=== PATIENT | female | born 1940 | race Caucasian/White ===

== ENCOUNTER 2018-04-22 15:16 | Emergency (ER) | payer OTHER, MEDICAID ==
--- NOTE | 2018-04-22 15:12 | EDPHY ---
H & P Time Seen by Provider: 04/22/18 15:17 Constitutional: Initial Vital Signs Temperature (C) 36.7 C 04/22/18 15:16 Heart Rate 65 04/22/18 15:16 Respiratory Rate 16 04/22/18 15:16 Blood Pressure 159/69 H 04/22/18 15:16 O2 Sat (%) 97 04/22/18 15:16 O2 Delivery Mode Nasal Cannula O2 (L/minute) 2 Allergies/Adverse Reactions: lisinopril Allergy (Verified 03/16/18 06:57) Home Medications: Medication Instructions Recorded Acetaminophen [Tylenol 325mg (*)] 650 mg PO BID 03/16/18 Acetaminophen [Tylenol 325mg (*)] 650 mg PO Q6HRS PRN 03/16/18 Amiodarone HCl [Pacerone (*)] 200 mg PO DAILY 03/16/18 Atorvastatin Calcium [Lipitor 20 20 mg PO HS 03/16/18 mg (*)] Bisacodyl [Dulcolax] 10 mg RC DAILY PRN 03/16/18 Cholecalciferol Vit D3 [Vitamin D3 5,000 units PO DAILY 03/16/18 (*)] Docusate Sodium [Colace 100 MG (*)] 100 mg PO DAILY 03/16/18 Escitalopram Oxalate [Lexapro 10 10 mg PO DAILY 03/16/18 MG] Herbals/Supplements -Info Only 1 ea PO DAILY 03/16/18 Ipratropium/Albuterol [Duoneb (*)] 3 ml IH Q2H PRN 03/16/18 Levothyroxine [Synthroid 112 mcg 112 mcg PO DAILY06 03/16/18 (*)] Loperamide HCl [Imodium 2 mg (*)] 2 mg PO PRN PRN 03/16/18 Magnesium Oxide [Magnesium Oxide 400 mg PO TID 03/16/18 400 mg (*)] Nystatin 1 galo TP BID PRN 03/16/18 Polyethylene Glycol 3350 [Miralax 17 gm PO DAILY 03/16/18 17 gm (*)] Potassium Cl [Klor-Con 20 meq (*)] 20 meq PO DAILY 03/16/18 Warfarin Sodium [Coumadin 4MG (*)] 4 mg PO DAILY16 03/16/18 guaiFENesin [Mucinex 600 MG (*)] 600 mg PO BID PRN 03/16/18 levETIRAcetam [Keppra 500 mg (*)] 500 mg PO BID 03/16/18 Amoxicillin/Clavulanate Pot 875 mg PO BID #4 tab 03/21/18 [Augmentin 875 MG TAB (*)] predniSONE 40 mg PO DAILY #4 tablet 03/21/18 Medical Decision Making - Diagnostics Imaging: I viewed and interpreted images myself ED Course/Re-evaluation: CHIEF COMPLAINT: Right arm pain HISTORY OF PRESENT ILLNESS: The patient is an anticoagulated (Coumadin) 77 y/o male with a history of 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 The patient began to have right arm pain several days ago, so the nursing staff at [facility] preformed an x-ray. This x-ray revealed a right humeral head fracture with mild displacement. She denies falling, bumping her right arm, or recent trauma. As the patient is bedridden they sent her to the emergency department. No headache, chest pain, shortness of breath, abdominal pain, urinary or bowel complaints, numbness, paresthesias, fevers. REVIEW OF SYSTEMS: A comprehensive 10 system review of systems is otherwise negative aside from elements mentioned in the history of present illness and medical decision making. PHYSICAL EXAM: HR, BP, O2 Sat, RR. Temp noted General Appearance: Obese, bedridden, alert, well hydrated, appropriate, and non -toxic appearing. Head: Atraumatic without scalp tenderness or obvious injury Eyes: Pupils equal, round, reactive to light and accommodation, EOMI, no trauma , no injection. Ears: Clear bilaterally, no perforation, normal landmarks Nose: Atraumatic, no rhinorrhea, clear. Throat: There is no erythema or exudates, no lesions, normal tonsils, mucus membranes moist. Neck: Supple, nontender, no lymphadenopathy. Respiratory: No retractions, no distress, no wheezes, and no accessory muscle use. Lungs are clear to auscultation bilaterally. Cardiovascular: Regular rate and rhythm, no murmurs, rubs, or gallops. Bilateral carotid, radial, dorsalis pedis, and posterior tibial pulses intact. Good capillary refill all extremities. Gastrointestinal: Abdomen is soft, nontender, non-distended, no masses, no rebound, no guarding, no peritoneal signs. Musculoskeletal: Right upper extremity tenderness to palpation with decreased ROM secondary to pain. Neurological: Alert, appropriate, and interactive. The patient has normal DTRs and non-focal cranial nerves, motor, sensory, and cerebellar exam. Skin: No rashes, good turgor, no nodules on palpation. Past medical history: Nontraumatic intracranial hemorrhage with right-sided paresis; embolic stroke; atrial fibrillation - Coumadin; hyperlipidemia; diabetes type 2; hypoxemia; convulsions - Keppra; asthma. Past surgical history: Noncontributory Family history: Denies Social history: Lives at [facility], bedridden, retired DIAGNOSTICS/PROCEDURES/CRITICAL CARE TIME: Right humerus x-ray: Humeral neck fracture with 50% displacement Right shoulder x-ray: Humeral neck fracture with 50% displacement. The humerus is not dislocated. DIFFERENTIAL DIAGNOSIS: The differential diagnosis for the patient's knee injury included but was not limited to fracture, ligamentous injury, contusion, muscular strain. 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 As I don' t have the actual x-ray images I will re-image the patient's right humerus. 1545: I reviewed patient's right arm x-ray which reveals a displaced humeral neck fracture. She does not ambulate, has respiratory difficulties, and is not a good candidate for surgery. I will consult with the orthopedic surgeon semiconductor wafers etch operator regarding this patient. 1551: I consulted with Dr. Solis, orthopedic surgeon, regarding this patient. He will come down to the emergency department to consult on this patient. 1610: I consulted with Dr. Solis as he is in the ED now; right shoulder x-ray ordered. 1620: Patient is safe to be discharged back to [facility]. She has an appointment with Dr. Solis next week. Return precautions provided; patient is comfortable with this plan. Departure - Departure Disposition: Home, Routine, Self-Care Clinical Impression: Right humeral fracture Qualifiers: Encounter type: initial encounter Humerus Location: surgical neck Fracture type : closed Fracture morphology: 2-part Fracture alignment: displaced Qualified Code(s): S42.221A - 2-part displaced fracture of surgical neck of right humerus , initial encounter for closed fracture Condition: Good Instructions: Arm Fracture in Adults (ED) Additional Instructions: 1. Rest, ice, elevation. 2. Follow up with an orthopedic surgeon next week. 3. Return to the emergency department for worsening pain, swelling, numbness, weakness or other concerns. 4. Wear sling at all times until reevaluation. Referrals: Shai Solis MD [Medical Doctor] - As per Instructions Report Scribed for: Glen Hemphill Report Scribed by: Becca Dailey Date of Report: 04/22/18 Time of Report: 15:17
[2018-04-22 15:29] VITALS: BP 159/69
--- NOTE | 2018-04-22 17:19 | ASDISCHSUM ---
Discharge Information Plan Status:SNF Medically Cleared to Leave: Discharge Date: D/C Disposition:Fdc Facility ADT D/C Disposition:Home, Routine, Self-Care Projected Discharge Date: Transportation at D/C:ALS/BLS Discharge Delay Reason: Follow-Up Date: Discharge Slot: Final Diagnosis: Placement Information Patient Contact Information Contact Name:BEATRICE Relationship:Daughter Address:[address] City:[place] Alternate Phone: State/Zip Code:[place] [address] Email: Financial Information Financial Class:Medicare Advantage Plans Primary Plan Desc:[employer] PLANS Primary Plan Number:[id number] Secondary Plan Desc:MED[place] Secondary Plan Number:[id number] Assessment Information [facility] CM Progress Note CM Note CM Note Notes: Pt presented to the ED via EMS from [facility] for a right humeral head fracture. Pt ready for discharge back to . [facility] stretcher arranged; PCS completed, copy provided to EMS, original to be scanned into e-chart. CM available for further assistance if needed. Date Signed: 04/22/2018 05:16 PM Electronically Signed By:Meseret Holcomb RN Intervention Information Intervention Type:Transportation Date of Service:04/22/2018 05:17 PM Patient Type:Emergency Room Staff Member:CATINA Holcomb [place] Hours:0.25 Discipline:Supervisor Hand Silvering Severity: Comment:[facility] stretcher transport arranged. PCS completed. Intervention Type:Post Acute Communication Date of Service:04/22/2018 05:17 PM Patient Type:Emergency Room Staff Member:CATINA Holcomb Sharon Hours:0.25 Discipline:Supervisor Hand Silvering Severity: Comment:Notified [facility] of pt's return to facility and report provided.
--- NOTE | 2018-04-22 18:18 | GCON ---
DATE OF CONSULTATION: 04/22/2018 INDICATIONS: I was asked to see Ms. Jones by the emergency department with a diagnosis of a right hu meral fracture. HISTORY OF PRESENT ILLNESS: This is a very pleasant 77-year-old woman with a medical diagnosis of mo rbid obesity as well as likely dementia. The patient does not note that she fell anytime recently. However, she notes that she had right shoulder pain for the last 2 days. She does have a history of a stroke with right-sided weakness, but is grossly intact. She reports no other musculoskeletal comp laints. PHYSICAL EXAM: EXTREMITIES: Skin overlying the shoulder is clean, dry, and intact. Range of motion is deferred secondary to pain. The patient is grossly intact throughout the hand, wrist, and elbow. According to the family again, as mentioned above, she has some deficits from prior injury, but all strength at this time is a least 3/5 except for the shoulder range of motion, which is deferred. IMAGES: Taken include 2 views of the right shoulder, which demonstrate a surgical neck fracture. I requested an axillary view and positioned the patient in the axillary position. An x-ray was taken a nd demonstrated a humeral neck fracture with no evidence of glenohumeral dislocation. IMPRESSION: Right proximal humerus fracture. ASSESSMENT AND PLAN: Given the fracture pattern, this is going to heal well non-operatively. Additi onally, given the patient's comorbidities, mental status, and demands, this is almost certainly not g oing to be an operative fracture almost regardless of displacement. I recommended that the patient be treated with a sling. We will immobilize her for a week simply for her comfort. I will see her next Monday in my clinic, will repeat x-rays at which time we will star t passive range of motion with Codman pendulums. The patient's family was given my card and my offic e will be in touch with them for further information. /[id number]/MODL
== END 2018-04-22 17:34 | disposition home or self-care (01) ==
LOC: EDUNIT#
DX: M84.821 Other disorders of continuity of bone, right humerus (principal); Z74.01 Bed confinement status; I69.351 Hemiplegia and hemiparesis following cerebral infarction affecting right dominant side; I48.91 Unspecified atrial fibrillation; E11.9 Type 2 diabetes mellitus without complications; E78.5 Hyperlipidemia, unspecified; G40.909 Epilepsy, unspecified, not intractable, without status epilepticus
CPT/HCPCS: 73030; 73060; 99283; A4565

== ENCOUNTER 2018-12-26 08:11 | Emergency (ER) | payer OTHER, MEDICAID ==
--- NOTE | 2018-12-26 08:23 | EDPHY ---
H & P Time Seen by Provider: 12/26/18 08:19 HPI/ROS: Chief complaint. Fell out of bed HPI. Patient is a 78-year-old female here by EMS. She will old over in bed this morning and fell out of bed. Unknown loss of consciousness. She did sustain a bump to the left forehead. She has neck pain. C-spine precautions are perform per EMS. She also complains of right shoulder pain. Patient had a right humeral neck fracture in April 2018. Patient is on Coumadin. No chest pain or shortness of breath. No abdominal pain. Denies back pain. No injury otherwise to arms or hips or legs other than the right shoulder pain. ROS 10 systems were reviewed and negative with the exception of the elements mentioned in the history of present illness Past Medical/Surgical History: Diabetes, CVA with residual right-sided weakness, hypertension, hypothyroid, atrial fibrillation, sleep apnea Social History: Single, nonsmoker, no alcohol Smoking Status: Never smoked Physical Exam: General Appearance: Alert well-developed female mild distress. Vital signs are stable Eyes: Pupils equal and round no pallor or injection. ENT, no hemotympanum or Mcgowan sign. No oral pharyngeal or dental trauma. Small hematoma left forehead Respiratory: There are no retractions, lungs are clear to auscultation. Cardiovascular: Regular rate and rhythm. Gastrointestinal: Abdomen is soft and nontender, no masses, bowel sounds normal. Neurological: Awake and alert. Residual right-sided weakness from CVA. No new findings. Skin: Warm and dry, no rashes. Musculoskeletal: Neck is restrained in cervical collar. Palpation reveals diffuse tenderness. No T, L, S spine tenderness. Extremities tenderness to palpation right anterior shoulder Psychiatric: Patient is oriented X 3, there is no agitation. Constitutional: Initial Vital Signs Temperature (C) 36.3 C 12/26/18 08:11 Heart Rate 51 L 12/26/18 08:11 Respiratory Rate 18 12/26/18 08:11 Blood Pressure 133/46 H 12/26/18 08:11 O2 Sat (%) 90 L 12/26/18 08:11 O2 Delivery Mode Room Air O2 (L/minute) 3 Allergies/Adverse Reactions: lisinopril Allergy (Verified 12/26/18 08:19) Home Medications: Medication Instructions Recorded Acetaminophen [Tylenol 325mg (*)] 650 mg PO BID 03/16/18 Acetaminophen [Tylenol 325mg (*)] 650 mg PO Q6HRS PRN 03/16/18 Amiodarone HCl [Pacerone (*)] 200 mg PO DAILY 03/16/18 Atorvastatin Calcium [Lipitor 20 20 mg PO HS 03/16/18 mg (*)] Bisacodyl [Dulcolax] 10 mg RC DAILY PRN 03/16/18 Cholecalciferol Vit D3 [Vitamin D3 5,000 units PO DAILY 03/16/18 (*)] Docusate Sodium [Colace 100 MG (*)] 100 mg PO DAILY 03/16/18 Escitalopram Oxalate [Lexapro 10 10 mg PO DAILY 03/16/18 MG] Herbals/Supplements -Info Only 1 ea PO DAILY 03/16/18 Ipratropium/Albuterol [Duoneb (*)] 3 ml IH Q2H PRN 03/16/18 Levothyroxine [Synthroid 112 mcg 112 mcg PO DAILY06 03/16/18 (*)] Loperamide HCl [Imodium 2 mg (*)] 2 mg PO PRN PRN 03/16/18 Magnesium Oxide [Magnesium Oxide 400 mg PO TID 03/16/18 400 mg (*)] Nystatin 1 galo TP BID PRN 03/16/18 Polyethylene Glycol 3350 [Miralax 17 gm PO DAILY 03/16/18 17 gm (*)] Potassium Cl [Klor-Con 20 meq (*)] 20 meq PO DAILY 03/16/18 Warfarin Sodium [Coumadin 4MG (*)] 4 mg PO DAILY16 03/16/18 guaiFENesin [Mucinex 600 MG (*)] 600 mg PO BID PRN 03/16/18 levETIRAcetam [Keppra 500 mg (*)] 500 mg PO BID 03/16/18 Amoxicillin/Clavulanate Pot 875 mg PO BID #4 tab 03/21/18 [Augmentin 875 MG TAB (*)] predniSONE 40 mg PO DAILY #4 tablet 03/21/18 Medical Decision Making - Diagnostics Imaging Results: Imaging Impressions Head CT 12/26/18 08:23 Impression: 1. Old lacunar infarct right caudate. 2. No acute hemorrhage, hydrocephalus, or mass effect. 3. Cerebrovascular atherosclerosis. 4. No definite acute infarct. 5. Mild atrophy and severe microvascular ischemic gliosis. 6. No epidural or subdural hematoma. Findings and recommendations discussed with Emergency Department physician, Delgado Washington, at 9:38 hours, 12/26/2018. Final report concurs with initial preliminary interpretation. Shoulder X-Ray 12/26/18 08:23 Impression: Old fracture deformity of the right humeral neck without definite evidence of recurrent or acute fracture. Findings and recommendations discussed with Emergency Department physician, Delgado Washington, at 8:50 hours, 12/26/2018. Final report concurs with initial preliminary interpretation. X-ray right shoulder shows old fracture of the right humeral neck with callus formation and appears to be healing without definite new fracture CT head without contrast shows no evidence of intracranial bleeding. Old CVA. Reviewed by me and discussed with Cervical spine CT reviewed by me and discussed with shows significant DJD but no evidence of acute fracture ED Course/Re-evaluation: Re-evaluation 10:15 a.m.--patient is stable and without complaints. Cervical collar is removed by me. Gentle palpation and then passive and then active range of motion elicit no tenderness or neurologic findings. The cervical collar is discontinued by me at 10:20 a.m. Patient and I discussed imaging study results, treatment plan including criteria for return importance of follow-up and further evaluation. She expresses understanding and agreement Differential Diagnosis: I considered intracranial bleeding as the patient has had trauma and is on Coumadin. I considered cervical spine injury. Patient has slow healing fracture of the right proximal humerus without evidence of acute fracture today Departure - Departure Disposition: Home, Routine, Self-Care Clinical Impression: Head contusion Qualifiers: Encounter type: initial encounter Contusion of head detail: other part of head Qualified Code(s): S00.83XA - Contusion of other part of head, initial encounter Fall Qualifiers: Encounter type: initial encounter Qualified Code(s): W19.XXXA - Unspecified fall, initial encounter Condition: Good Instructions: Head Injury (ED) Additional Instructions: Ice to sore areas today. Continue regular medications Return for worsening headache, vomiting, confusion Recheck in 2 days for any continuing symptoms Referrals: Patient,NotPresent [Unknown] - As per Instructions
[2018-12-26 11:09] VITALS: BP 125/41
== END 2018-12-26 12:18 | disposition home or self-care (01) ==
LOC: EDUNIT#
DX: S00.83XA Contusion of other part of head, initial encounter (principal); S49.91XA Unspecified injury of right shoulder and upper arm, initial encounter; I67.2 Cerebral atherosclerosis; W19.XXXA Unspecified fall, initial encounter